=== PATIENT | male | born 1950 | race Caucasian/White ===

== ENCOUNTER 2019-10-16 14:51 | Emergency (ER) | payer OTHER ==
[2019-10-16 15:35] VITALS: BP 127/82; PULSE 88; TEMP 100.9; BMI 31.3
== END 2019-10-16 15:45 | disposition home or self-care (01) ==
LOC: FER 14:51
DX: Z48.02 Encounter for removal of sutures (principal); J06.9 Acute upper respiratory infection, unspecified
CPT/HCPCS: 99282-25